=== PATIENT | female | born 1990 | race Caucasian/White ===

== ENCOUNTER → 2016-10-03 | Outpatient (CLI) | payer BC, MEDICAID | LOC: FIMAGING 10:22 | DX: Z34.93 Encounter for supervision of normal pregnancy, unspecified, third trimester (principal); Z3A.31 31 weeks gestation of pregnancy ==

== ENCOUNTER 2016-12-07 21:15 | Inpatient (IN) | payer OTHER, MEDICAID ==
[2016-12-07] MEDS ORDERED: OXYTOCIN/RINGERS LACTATE 1,000 ML IV PRN (21:37)
[2016-12-07] MEDS ORDERED: OLIVE OIL 118 ML BTL MISC PRN (21:37)
[2016-12-07] MEDS ORDERED: EPSOM SALT 454 GM TP PRN (21:37)
[2016-12-07] MEDS ORDERED: TERBUTALINE SULFATE 1 MG/ML VIAL IV PRN (21:37)
[2016-12-07] MEDS: LR 1,000 ML IV PRN (21:50)
--- NOTE | 2016-12-07 22:07 | GHP ---
[f rep st] PREOP HISTORY AND PHYSICAL DATE OF ADMISSION: 12/07/2016 ADMITTING DIAGNOSIS: Intrauterine at 40 and 3/7 weeks' gestation in spontaneous labor. HISTORY OF PRESENT ILLNESS: The patient is a 26-year-old, 2, para 0, with a last menstrual period of 02/29/2016, an EDC of 12/04/2016, which was set by a 1st trimester ultrasound. She began having contractions at 6 p.m. tonight. They are becoming increasing in intensity and frequency, jensen ry 4-5 minutes. No leakage of fluid. Some vaginal bleeding, vaginal spotting with voiding. Has abdul d good movement. She feels like she lost her mucus plug this morning. The patient has had pr enatal care since she transferred care at 36 weeks. She had previously had care at ___ clinic in [place]. The patient's risk factors include 1st trimester marijuana use and had a positive tox screen in the 1st trimester for marijuana but no other risk factors and her late transfer at 36 weeks. PAST OB HISTORY: August 2015: She had a spontaneous . No D and C. 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 Last m enstrual period of 02/29/2016. Positive test April 01, 2016. Denies history of any abn ormal Paps or any STDs. She has used an implant and OCPs in the past. PAST MEDICAL HISTORY: No significant past medical history or surgical history. ALLERGIES: No known drug allergies. MEDICATIONS: Include vitamins. LABORATORY: She is A positive, antibody negative, RPR nonreactive, rubella immune, hepatitis negati ve, HIV negative, varicella immune. Pap normal. Gonorrhea and chlamydia negative. Quad normal. 1 hour GTT 92. GBS is negative. SOCIAL HISTORY: She is single. Has an involved boyfriend named Dewayne. 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 She denies tobacco, alcohol and drug use now. FAMILY HISTORY: Paternal grandfather of a myocardial infarction. She had an uncle with a stro ke. Paternal grandmother had Alzheimer's. REVIEW OF SYSTEMS: 10-point review of systems is negative except for labor symptoms as above. PHYSICAL EXAMINATION: VITAL SIGNS: She is afebrile. Stable. ABDOMEN: heart tones are 150s , reactive, moderate variability. Category 1. She is lei every 2-3 minutes. CERVICAL: 3-4 , 80%, -2 and intact. ASSESSMENT/PLAN: 26-year-old, 2, para 0-0-1-0, at 40 and 3/7 gestation, in early active lab or. The patient will be admitted for labor management. Have a cervical check in a couple hours. Mateo gomez will desire an epidural for pain control when her contractions become more uncomfortable. /[id number]/MODL
[2016-12-07 22:19] LABS: ADD DIFF? YES; ADD MORPH? NO; ADD SCAN? NO; ATYPICAL LYMPHOCYTE FLAG 0 (0-99); FRAGMENT RBC FLAG 0 (0-99); HEMATOCRIT 36.3 % (38.0-47.0); HEMOGLOBIN 12.9 g/dL (12.6-16.3); LEFT SHIFT FLG 40 (0-99); LIPEMIA HEMOLYSIS FLAG 90 (0-99); MEAN CELL HEMOGLOBIN 31.6 pg (27.9-34.1); MEAN CELL HEMOGLOBIN CONCENTR. 35.5 g/dL (32.4-36.7); MEAN PLATELET VOLUME 10.4 fL (8.7-11.7); PLATELET CLUMPS FLAG 0 (0-99); PLATELET COUNT 222 10^3/uL (150-400); RED BLOOD CELL COUNT 4.08 10^6/uL (4.18-5.33)
[2016-12-07 22:50] LABS: PLATELET ESTIMATE ADEQUATE (ADEQ)
[2016-12-08] MEDS: LR 1,000 ML IV PRN ×4 (00:04→07:01)
[2016-12-08] MEDS ORDERED: fentaNYL 2MCG/ML/BUP 0.1% RTU 100 ML BAG EP ONE (00:18)
[2016-12-08] MEDS ORDERED: BUPIVACAINE 0.25% 30 ML SDV ONE (00:18)
[2016-12-08] MEDS ORDERED: PHENYLEPHRINE HCL 100 MCG/ML SYR ONE (00:18)
[2016-12-08] MEDS ORDERED: PHENYLEPHRINE HCL 100 MCG/ML SYR IVP PRN (00:47)
[2016-12-08] MEDS ORDERED: ONDANSETRON 4 MG/2 ML VIAL IVP PRN (00:47)
[2016-12-08] MEDS ORDERED: NALOXONE HCL 0.4 MG/ML INJ IVP PRN (00:47)
--- NOTE | 2016-12-08 00:47 | PREANESOB ---
Obstetric Pre-Anesthesia Info - General Info Proposed Procedure: ruel : 2 Para: 0 - Info Status: Full Term Monitors: External FHR Pattern: Reassuring - Labor Status Indications for Labor Analgesia: Pain Control Labor Epidural: Yes Anesthesia ROS: neg Allergies/Adverse Reactions: Allergy/AdvReac Type Severity Reaction Status Date / Time No Known Allergies Allergy Unverified 12/07/16 21:37 Home Medications: Medication Instructions Recorded 12/07/16 Visit Medications: Generic Name Dose Route Start Last Admin Trade Name Chelsy PRN Reason Stop Dose Admin Lactated Ringer's 1,000 mls @ 0 mls/hr 12/07/16 21:37 12/08/16 00:04 Lr IV 06/05/17 21:36 1,000 mls PRN PRN Administration SEE PROTOCOL CONDITIONS Protocol Per Protocol Oxytocin/Lactated Ringer's 1,000 mls @ 150 mls/hr 12/07/16 21:37 Pitocin 20 Units/Lr (Premix) IV PRN PRN Post- bleeding Ibuprofen 600 mg 12/07/16 21:37 Motrin PO 06/05/17 21:36 Q6HRS PRN post , inflammation Magnesium Sulfate 454 gm 12/07/16 21:37 Epsom Salt TP 06/05/17 21:36 Q1H PRN perineal discomfort [place] Oil 118 ml 12/07/16 21:37 Sweet Oil MISC 06/05/17 21:36 ONCE PRN preneal massage Terbutaline Sulfate 0.25 mg 12/07/16 21:37 Brethine IV 06/05/17 21:36 ONCE PRN Tachysystole Discontinued Medications Generic Name Dose Route Start Last Admin Trade Name Chelsy PRN Reason Stop Dose Admin Bupivacaine HCl Confirm 12/08/16 00:18 Sensorcaine 0.25% Sdv Administered 12/08/16 00:19 Dose 30 ml .ROUTE .STK-MED ONE Fentanyl/Bupivacaine HCl Confirm 12/08/16 00:18 Fentanyl/Bupivacaine/Ns 2 Mcg/Ml 0.1% (Premix Administered 12/08/16 00:19 Dose 100 ml EP .STK-MED ONE Phenylephrine HCl Confirm 12/08/16 00:18 Neosynephrine Administered 12/08/16 00:19 Dose 1,000 mcg .ROUTE .STK-MED ONE - Anesthesia History Response to Local Anesthetics: Normal Anesthesia & Operative History: No Prior Problems Family Anesthesia History: Negative - Social History Substance Use/Abuse: Denies - Focused Exam Height/Weight (Nursing): Height 154.94 cm Weight 72.575 kg ASA Status: II Labs: 12/07/16 21:50 Patient ABO/Rh A POSITIVE 12/07/16 21:50 - Plan Patient/Guardian Understands and Agrees to Plan: Yes Urgent/Emergent Case: Melia haley completed preop but documented later for safe timely pt care
[2016-12-08] MEDS ORDERED: fentaNYL 2MCG/ML/BUP 0.1% RTU 100 ML EP SCH (01:00)
[2016-12-08] MEDS ORDERED: LR 500 ML IV SCH (01:00)
--- NOTE | 2016-12-08 05:17 | OBPROG ---
OBG Labor Progress Note Assessment/Plan: Assessment: 26 y/o @ 40 4/7 weeks in active labior Plan: Good cervical progression. status reassuring. 12/08/16 05:16 Subjective: Pt is resting comfortably with her epidural. Objective: 12/07/16 21:50 Patient ABO/Rh A POSITIVE 12/07/16 21:50 - SVE Dilation (cm): 7 Effacement (%): 90 Station: -1 Dennis Current Contraction Pattern: Regular (Q 2-3) FHR (bpm): 150 FHR Pattern Variability: Moderate FHR Category: 1 Membranes: AROM Amniotic Fluid Color: Clear - Procedures Non-surgical Procedures: Amniotomy Oxytocin Orders Assessment - Pre-Induction/Augmentation Assessment Gestational Age: 40 week(s) and 3 day(s) ICD10 Worksheet Patient Problems: Problems Problem Status Onset Active labor at term Acute - ICD10 Problem Qualifiers (1) Active labor at term
[2016-12-08] MEDS ORDERED: CALCIUM CARBONATE 500 MG CHEWABLE TAB PO PRN (05:18)
[2016-12-08] MEDS ORDERED: ACETAMINOPHEN 500 MG TAB PO ONE (07:38)
--- NOTE | 2016-12-08 07:38 | OBPROG ---
OBG Labor Progress Note Assessment/Plan: Assessment:cat 2 fhr diminished variability tachycardia temp 38.3 tylenol 1gm now contractions 2-4 + bloody show bolus to epidural to assist with pain relief 250 bolus d5lr cephalic Plan:expectant management of labor, tylenol for temp, 250 d5lr bolus 12/08/16 07:35 Subjective: I am feeling some pressure Objective: 12/07/16 21:50 Patient ABO/Rh A POSITIVE 12/07/16 21:50 - SVE Dilation (cm): 8 Effacement (%): 90 Station: 0 - Procedures Non-surgical Procedures: Amniotomy Oxytocin Orders Assessment - Pre-Induction/Augmentation Assessment Gestational Age: 40 week(s) and 3 day(s) ICD10 Worksheet Patient Problems: Problems Problem Status Onset Active labor at term Acute
[2016-12-08] MEDS ORDERED: GENTAMICIN PHARMACY TO DOSE MISC SCH (08:15)
[2016-12-08] MEDS ORDERED: AMPICILLIN SODIUM 2 GM in NS 100 ML IV SCH (08:30)
[2016-12-08] MEDS: AMPICILLIN SODIUM 2 GM in NS 100 ML IV SCH ×3 (08:46→21:26)
[2016-12-08] MEDS: GENTAMICIN SULFATE IV SCH (09:23)
[2016-12-08] MEDS: D5W IV SCH (09:23)
[2016-12-08] MEDS: IBUPROFEN 600 MG TAB PO PRN ×3 (11:25→23:41)
[2016-12-08] MEDS ORDERED: HYDROCORTISONE 0.5% CREAM TP PRN (12:16)
[2016-12-08] MEDS ORDERED: ACETAMINOPHEN 325 MG TAB PO PRN (12:16)
[2016-12-08] MEDS ORDERED: HYDROCODONE/APAP 5/325 TAB PO PRN (12:16)
[2016-12-08] MEDS ORDERED: SIMETHICONE 80 MG TAB CHEW PO PRN (12:16)
--- NOTE | 2016-12-08 12:18 | OBDEL ---
Info Type: Vaginal GBS+: No Indications for Delivery: Spontaneous Labor Vaginal Delivery - Labor and Delivery Onset of Contractions Date: 12/07/16 Onset of Contractions Time: 16:00 Onset of Contractions Type: Spontaneous Rupture of Membranes Date: 12/08/16 Rupture of Membranes Time: 05:15 Rupture of Membranes Type: Artificial Amniotic Fluid Color: Meconium Stained Dilation Complete Date: 12/08/16 Dilation Complete Time: 10:00 Placenta Delivery Date: 12/08/16 Placenta Delivery Time: 10:43 Total Hours of Labor: 18 Non-surgical Procedures: Amniotomy Laceration: Other (Specify) (vaginal laceration) Repair: 3-0, Vicryl Vaginal Sponge Count Correct: Yes Vaginal Needle Count Correct: Yes Vaginal Sweep Performed: No EBL: 400 Delivery Events: None - Medications Labor Augmentation/Induction Methods Used: None Operative Report - Delivery L&D Analgesia/Anesthesia Type: Epidural Data Dennis Delivery Date: 12/08/16 Delivery Time: 10:32 VI: 12/04/16 Gestational Age: 40 week(s) and 4 day(s) Sex of : Female Weight (gm): 3430.292 g Score (1 Min): 8 Score (5 Min): 9 ICD10 Worksheet Patient Problems: Problems Problem Status Onset Active labor at term Acute
[2016-12-08 22:11] VITALS: O2SAT 95
[2016-12-08] MEDS: DOCUSATE SODIUM 100 MG CAP PO PRN (22:27)
[2016-12-09] MEDS: AMPICILLIN SODIUM 2 GM in NS 100 ML IV SCH ×3 (03:31→18:38)
[2016-12-09] MEDS: IBUPROFEN 600 MG TAB PO PRN ×4 (05:25→23:53)
[2016-12-09] MEDS: D5W IV SCH (09:51)
[2016-12-09] MEDS: GENTAMICIN SULFATE IV SCH (09:51)
[2016-12-09] MEDS: DOCUSATE SODIUM 100 MG CAP PO PRN (12:26)
[2016-12-09] MEDS: IRON POLYSAC/IRON HEME 28 MG TAB PO SCH (12:26)
[2016-12-09] MEDS ORDERED: EPSOM SALT 454 GM TP ONE (12:29)
--- NOTE | 2016-12-09 20:17 | OBPP ---
Progress Note Assessment/Plan: Assessment: ppd# 1 s/p s/p chorio anemia Plan: routine post care iron 12/09/16 20:15 Subjective: patient is doing well. pain is well controlled. normal lochia. baby doing well. denies headache and changes in vision. ambulating. wants to go home tomorrow. Objective: 12/09/16 06:20 Patient ABO/Rh A POSITIVE 12/07/16 21:50 Temp Pulse Resp BP Pulse Ox 36.3 C 88 16 89/58 L 95 12/09/16 08:15 12/09/16 08:15 12/09/16 08:15 12/09/16 08:15 12/09/16 08:15 Uterine Position/Fundal Height: Umbilicus -2 Uterine Tone: Firm Physical Exam - Physical Exam General Appearance: WD/WN, alert, no apparent distress Respiratory: chest non-tender, lungs clear, normal breath sounds Cardiac/Chest: normal peripheral pulses, regular rate, rhythm Abdomen: normal bowel sounds, hypoactive bowel sounds, non-tender Extremities: normal range of motion, non-tender, normal inspection, normal capillary refill Skin: normal color, warm/dry Neuro/Psych: no motor/sensory deficits, alert, normal mood/affect, oriented x 3
[2016-12-10 00:01] VITALS: RESP 18
[2016-12-10] MEDS: AMPICILLIN SODIUM 2 GM in NS 100 ML IV SCH ×2 (08:36→10:58)
[2016-12-10] MEDS: IBUPROFEN 600 MG TAB PO PRN (08:40)
[2016-12-10] MEDS: IRON POLYSAC/IRON HEME 28 MG TAB PO SCH (08:41)
[2016-12-10] MEDS: DOCUSATE SODIUM 100 MG CAP PO PRN (08:41)
--- NOTE | 2016-12-10 08:54 | OBPP ---
Progress Note Assessment/Plan: Assessment: s/p PPD # 2 - pt is stable Plan: Plan for d/c home today Instructions reviewed with pt No RX given Cont PNV Pelvic rest RTC in 4 and 6 weeks for pp visit 12/10/16 08:52 Subjective: Pt seen and examined. Doing well with no complaints. Mild cramping. Moderate lochia. Voiding without difficulty, passing flatus. No BM yet. BF without difficulty. Baby is in NICU and may get to go home today. Objective: 12/09/16 06:20 Patient ABO/Rh A POSITIVE 12/07/16 21:50 Temp Pulse Resp BP Pulse Ox 36.9 C 74 18 95/55 L 95 12/10/16 06:39 12/10/16 06:39 12/09/16 23:57 12/10/16 06:39 12/09/16 08:15 Uterine Position/Fundal Height: Umbilicus -2 Uterine Tone: Firm Physical Exam - Physical Exam General Appearance: WD/WN, alert, no apparent distress Respiratory: lungs clear, normal breath sounds Cardiac/Chest: regular rate, rhythm Abdomen: normal bowel sounds, non-tender, soft, flatus (+) Extremities: non-tender, normal inspection Skin: normal color, warm/dry, cyanosis Neuro/Psych: alert, normal mood/affect, oriented x 3
--- NOTE | 2016-12-10 08:56 | OBGCSDC ---
General Delivery Information - General Info : 1 Para: 1 Delivery Physician/CNM: Gloria Chodwary Admission Date: 12/08/16 Labs: Patient ABO/Rh A POSITIVE 12/07/16 21:50 Hct 29.6 % (38.0-47.0) L 12/09/16 06:20 Vaginal - Diagnosis Labor: Spontaneous Rupture of Membranes Type: Artificial Amniotic Fluid Color: Meconium Stained Laceration: Other (Specify) (vaginal laceration) Repair: 3-0, Vicryl Delivery Events: None - Operations/Procedures Non-surgical Procedures: Amniotomy L&D Analgesia/Anesthesia Type: Epidural - Hospital Course : Uncomplicated. Doing well, no complaints. Mild cramping. Moderate lochia. BF without difficulty. Baby is in NICU and may get to go home with her. - Delivery Non-surgical Procedures: Amniotomy L&D Analgesia/Anesthesia Type: Epidural Data Dennis Delivery Date: 12/08/16 Delivery Time: 10:32 VI: 12/04/16 Gestational Age: 40 week(s) and 6 day(s) Sex of Infant: Female [place] Weight (gm): 3430.292 g Score (1 Min): 8 Score (5 Min): 9 Discharge Information - Discharge Information Discharge Medications: Ibuprofen, Vitamins Condition: Good Instruction/Follow Up: Four Weeks, Six Weeks Discharge Physician/CNM: Anabell Sahu
[2016-12-10 10:07] VITALS: BP 104/62; PULSE 69; TEMP 97.5
[2016-12-10] MEDS: GENTAMICIN SULFATE IV SCH (10:57)
[2016-12-10] MEDS: D5W IV SCH (10:57)
== END 2016-12-10 12:47 | disposition home or self-care (01) | DRG 775 ==
LOC: OBSVTOIN 21:15 → FLD 21:15 → FOB 12-08 12:25
PROVIDERS: ADMIT Obstetrics & Gynecology; ATTEND Obstetrics & Gynecology
PROC: 10E0XZZ Delivery of Products of Conception, External Approach (ICD-10-PCS; principal; 2016-12-08)
PROC: 10907ZC Drainage of Amniotic Fluid, Therapeutic from Products of Conception, Via Natural or Artificial Opening (ICD-10-PCS; principal; 2016-12-08)
PROC: 0KQM0ZZ Repair Perineum Muscle, Open Approach (ICD-10-PCS; principal; 2016-12-08)
DX: O48.0 Post-term pregnancy (principal); O70.1 Second degree perineal laceration during delivery; O41.1230 Chorioamnionitis, third trimester, not applicable or unspecified; O77.0 Labor and delivery complicated by meconium in amniotic fluid; O99.02 Anemia complicating childbirth; Z3A.40 40 weeks gestation of pregnancy; Z37.0 Single live birth
CPT/HCPCS: J0290; J2370; J2590; J3105